=== PATIENT | male | born 1970 | race Caucasian/White ===

== ENCOUNTER → 2019-10-18 | Outpatient (CLI) | payer BC ==
[2016-04-23 21:34] VITALS: BP 158/92
[~2019-10-18] MED LIST: CLINDAMYCIN 300MG PO; IBUPROFEN200 MG PO; ULTRAM 50MG TAB50 MG PO; ULTRAM50 MG PO
== END ==
LOC: RAD 17:05
DX: S62.666A Nondisplaced fracture of distal phalanx of right little finger, initial encounter for closed fracture (principal)

== ENCOUNTER → 2020-05-11 | Outpatient (CLI) | payer BC ==
[2016-04-23 21:34] VITALS: BP 158/92
== END ==
LOC: LAB 15:17
DX: L08.9 Local infection of the skin and subcutaneous tissue, unspecified (principal)

== ENCOUNTER → 2020-05-20 | Outpatient (CLI) | payer BC ==
[2016-04-23 21:34] VITALS: BP 158/92
[2020-05-20 09:11] LABS: HEMOGLOBIN 14.2 g/dL (13.5-18.0); MEAN CELL VOLUME 91 fl (78-100); MEAN CORPUSCULAR HEMOGLOBIN 30 pg (27-31); MEAN CORPUSCULAR HGB CONC 32 g/dL (33-37); MEAN PLATELET VOLUME 10.2 fl (7.4-10.4); PLATELET COUNT 294 K/mm3 (130-400); RED BLOOD COUNT 4.82 M/mm3 (4.20-5.60); RED CELL DISTRIBUTION WIDTH 13.2 % (11.5-14.5); WHITE BLOOD COUNT 6.6 K/mm3 (4.8-10.8)
[2020-05-20 09:24] LABS: ALBUMIN 4.3 g/dL (3.5-5.0); POTASSIUM 4.8 mmol/L (3.5-5.1)
[2020-05-20 09:26] LABS: CALCIUM 10.4 mg/dL (8.3-10.5)
[2020-05-20 09:27] LABS: TOTAL PROTEIN 7.3 g/dL (6.4-8.3)
[2020-05-20 09:29] LABS: TOTAL BILIRUBIN 0.6 mg/dL (0.2-1.2)
[2020-05-20 09:43] LABS: LYMPHOCYTE 37 % (20-51); MONOCYTE 8 % (3-10); NEUTROPHILS 47 % (42-75)
== END ==
LOC: LAB 08:58
PROVIDERS: Physician Assistant
DX: Z13.820 Encounter for screening for osteoporosis (principal); Z76.89 Persons encountering health services in other specified circumstances; Z15.89 Genetic susceptibility to other disease; K42.9 Umbilical hernia without obstruction or gangrene; M25.511 Pain in right shoulder; Z84.1 Family history of disorders of kidney and ureter

== ENCOUNTER 2021-05-09 16:41 | Emergency (ER) | payer BC ==
[2021-05-09 17:39] LABS: BASO # 0.05 (0.02-0.10); EOS # 0.51 (0.04-0.40); EOS % 4.6 % (0.0-4.0); HEMATOCRIT 43.9 % (42.0-52.0); HEMOGLOBIN 14.3 g/dL (13.5-18.0); LYMPH# 2.38 (1.50-4.00); MEAN CELL VOLUME 94 fl (78-100); MEAN CORPUSCULAR HEMOGLOBIN 31 pg (27-31); MEAN CORPUSCULAR HGB CONC 33 g/dL (33-37); MEAN PLATELET VOLUME 10.3 fl (7.4-10.4); MONO # 0.68 (0.20-0.80); NEU # 7.53 (1.40-6.50); PLATELET COUNT 231 K/mm3 (130-400); RED BLOOD COUNT 4.65 M/mm3 (4.20-5.60); RED CELL DISTRIBUTION WIDTH 12.6 % (11.5-14.5); WHITE BLOOD COUNT 11.2 K/mm3 (4.8-10.8)
[2021-05-09] MEDS ORDERED: CEPHALEXIN500 M1 PO (18:05)
[2021-05-09 18:22] VITALS: BP 167/105
[2021-05-13 01:23] LABS: GRAM STAIN AMS
== END 2021-05-09 18:15 | disposition home or self-care (01) ==
LOC: ED 16:41
PROVIDERS: Family Medicine
DX: M70.22 Olecranon bursitis, left elbow (principal); F17.200 Nicotine dependence, unspecified, uncomplicated
CPT/HCPCS: J0696

== ENCOUNTER → 2021-05-13 | Outpatient (CLI) | payer BC ==
[~2021-05-13] MED LIST changes: +CEPHALEXIN500 M1 PO
== END ==
LOC: RAD 15:29
DX: M25.511 Pain in right shoulder (principal); M25.512 Pain in left shoulder

== ENCOUNTER 2021-12-18 13:03 | Observation (INO) | payer BC ==
[~2021-12-18] VITALS: Ht 182.9 cm; Wt 88.4 kg
[2021-12-18] MEDS ORDERED: CELECOXIB100 M1 PO (13:12)
[2021-12-18] MEDS ORDERED: TRAMADOL 50 MG TAB PO (13:12)
[2021-12-18] MEDS ORDERED: HYDROXYZINE HCL25 M1 PO (13:13)
[2021-12-18 13:25] LABS: BASO # 0.01 K/mm3 (0.02-0.10); EOS # 0.04 K/mm3 (0.04-0.40); EOS % 0.4 % (0.0-4.0); HEMOGLOBIN 13.9 g/dL (13.5-18.0); LYMPH# 0.58 K/mm3 (1.50-4.00); MEAN CELL VOLUME 91 fl (78-100); MEAN CORPUSCULAR HEMOGLOBIN 30 pg (27-31); MEAN CORPUSCULAR HGB CONC 33 g/dL (33-37); MEAN PLATELET VOLUME 10.3 fl (7.4-10.4); MONO # 0.35 K/mm3 (0.20-0.80); NEU # 8.47 K/mm3 (1.40-6.50); PLATELET COUNT 212 K/mm3 (130-400); RED BLOOD COUNT 4.64 M/mm3 (4.20-5.60); RED CELL DISTRIBUTION WIDTH 13.1 % (11.5-14.5); WHITE BLOOD COUNT 9.5 K/mm3 (4.8-10.8)
[2021-12-18 13:38] LABS: ALBUMIN 4.2 g/dL (3.5-5.0)
[2021-12-18 13:39] LABS: CALCIUM 9.1 mg/dL (8.3-10.5)
[2021-12-18 13:40] LABS: TOTAL PROTEIN 6.8 g/dL (6.4-8.3)
[2021-12-18 13:42] LABS: TOTAL BILIRUBIN 0.8 mg/dL (0.2-1.2)
[2021-12-18 14:09] LABS: URINE APPEARANCE HAZY; URINE BILIRUBIN NEGATIVE (NEGATIVE); URINE BLOOD TRACE (NEGATIVE); URINE COLOR YELLOW; URINE GLUCOSE NEGATIVE (NEGATIVE); URINE KETONE 1+ (NEGATIVE); URINE LEUKOCYTE ESTERASE NEGATIVE (NEGATIVE); URINE MUCUS PRESENT (NOT PRESENT); URINE NITRATE NEGATIVE (NEGATIVE); URINE PROTEIN(semi-quant) NEGATIVE (NEGATIVE); URINE UROBILINOGEN NORMAL (NORMAL); URINE WBC 0-1 /hpf (0-3)
[2021-12-18 14:16] LABS: D-DIMER 3.61 mg/L FEU (0.15-0.50)
[2021-12-18 18:16] VITALS: BP 161/101
[2021-12-18 21:40] VITALS: BP 130/70
[2021-12-19 06:01] VITALS: BP 158/84
[2021-12-19 08:17] LABS: POTASSIUM 4.1 mmol/L (3.5-5.1)
[2021-12-19 08:18] LABS: CALCIUM 8.7 mg/dL (8.3-10.5)
[2021-12-19 08:27] LABS: BASO # 0.01 K/mm3 (0.02-0.10); HEMATOCRIT 41.3 % (42.0-52.0); HEMOGLOBIN 13.7 g/dL (13.5-18.0); LYMPH# 1.23 K/mm3 (1.50-4.00); MEAN CELL VOLUME 91 fl (78-100); MEAN CORPUSCULAR HEMOGLOBIN 30 pg (27-31); MEAN CORPUSCULAR HGB CONC 33 g/dL (33-37); MEAN PLATELET VOLUME 10.7 fl (7.4-10.4); MONO # 0.57 K/mm3 (0.20-0.80); NEU # 14.09 K/mm3 (1.40-6.50); PLATELET COUNT 240 K/mm3 (130-400); RED BLOOD COUNT 4.55 M/mm3 (4.20-5.60); RED CELL DISTRIBUTION WIDTH 13.4 % (11.5-14.5)
[2021-12-19 09:57] VITALS: BP 156/89
[2021-12-19] MEDS ORDERED: DEXAMETHASONE6 M1 PO (10:30)
[2021-12-19] MEDS ORDERED: ZITHROMAX Z PA250 MG PO (10:31)
== END 2021-12-19 10:50 | disposition home or self-care (01) ==
LOC: ED 13:03 → MED/SURG 17:45
PROVIDERS: ADMIT Family Medicine
DX: J18.9 Pneumonia, unspecified organism (principal); R09.02 Hypoxemia; F41.9 Anxiety disorder, unspecified; G47.00 Insomnia, unspecified; Z79.899 Other long term (current) drug therapy
CPT/HCPCS: G0378; J0456; J0696; J1100; J1650; J2060; J7030; J7050; Q9967

== ENCOUNTER 2022-05-07 14:43 | Emergency (ER) | payer BC ==
[~2022-05-07 14:43] MED LIST changes: +CELECOXIB100 M1 PO; +DEXAMETHASONE6 M1 PO; +HYDROXYZINE HCL25 M1 PO; +TRAMADOL 50 MG TAB PO; +ZITHROMAX Z PA250 MG PO
[2022-05-07] MEDS ORDERED: CYCLOBENZAPRINE10 M1 PO (15:37)
[2022-05-07 15:45] VITALS: BP 165/107
== END 2022-05-07 15:46 | disposition home or self-care (01) ==
LOC: ED 14:43
DX: M54.50 Low back pain, unspecified (principal); F17.200 Nicotine dependence, unspecified, uncomplicated; Z28.310 Unvaccinated for COVID-19; X50.0XXA Overexertion from strenuous movement or load, initial encounter